=== PATIENT | male | born 1940 | race Caucasian/White ===

== ENCOUNTER 2021-11-02 03:10 | Emergency (ER) | payer OTHER ==
[~2021-11-02] VITALS: Ht 165.1 cm; Wt 81.6 kg
--- NOTE | 2021-11-02 03:20 | NUR ---
BRANDI FROM HOME A/OX1, c/o MECH TRIP AND FALL. PT C/O BACK PAIN -HT. AWAITIND TO BE SEEN BY
--- NOTE | 2021-11-02 03:46 | NUR ---
ENTRY LEVEL PROJECT COORDINATOR AT PT'S BEDSIDE
[2021-11-02 03:58] LABS: BASOPHILS % (AUTO) 0.8 % (0.0-2.0); EOSINOPHILS % (AUTO) 1.3 % (0.0-6.0); HEMATOCRIT 35 % (39-51); HEMOGLOBIN 12.2 g/dL (13.5-17.5); LYMPHOCYTES # (AUTO) 0.6 K/uL (0.8-4.8); LYMPHOCYTES % (AUTO) 9.6 % (20.0-44.0); MEAN CORPUSCULAR HGB CONC 35 g/dl (31.0-36.0); MEAN CORPUSCULAR VOLUME 98 fL (80-96); MONOCYTES # (AUTO) 0.8 K/uL (0.1-1.30); MONOCYTES % (AUTO) 12.4 % (2.0-12.0); NEUTROPHILS # (AUTO) 4.6 K/uL (1.8-8.9); NEUTROPHILS % (AUTO) 75.9 % (43.0-81.0); PLATELET COUNT (AUTO) 155 K/uL (150-450); WHITE BLOOD COUNT (AUTO) 6.1 K/uL (4.3-11.0)
[2021-11-02 04:05] LABS: CALCIUM, SERUM 8.7 mg/dL (8.5-10.1); CARBON DIOXIDE 26 mmol/L (21-32); CHLORIDE 103 mmol/L (98-107); CREATININE 1.8 mg/dL (0.6-1.3); GLUCOSE 289 mg/dL (74-106); POTASSIUM 4.6 mmol/L (3.5-5.1); SODIUM SERUM 136 mmol/L (136-145); UREA NITROGEN, BLOOD 41 mg/dL (7-18)
[2021-11-02 04:06] LABS: SERUM AMMONIA 34 umol/L (11-32)
[2021-11-02 04:10] LABS: ALANINE AMINOTRANSFERASE 32 U/L (12-78); ALBUMIN 3.1 g/dL (3.4-5.0); ALKALINE PHOSPHATASE 103 U/L (46-116); ASPARTATE AMINOTRANSFERASE 18 U/L (15-37); BILIRUBIN,DIRECT 0.1 mg/dL (0.0-0.2); BILIRUBIN,TOTAL 0.5 mg/dL (0.2-1.0); TOTAL PROTEIN, SERUM 6.5 g/dL (6.4-8.2)
--- NOTE | 2021-11-02 04:14 | NUR ---
URINE COLLECTED AND SENT
--- NOTE | 2021-11-02 04:17 | NUR ---
PT TAKEN TO CT VIA [facility]
[2021-11-02 04:42] LABS: BILIRUBIN,URINE NEGATIVE (NEGATIVE); COLOR,URINE YELLOW (YELLOW); LEUKOCYTE ESTERASE ,URINE NEGATIVE (NEGATIVE); NITRITE, URINE NEGATIVE (NEGATIVE); PROTEIN,URINE 100 mg/dl (NEGATIVE); UGLUCOSE >=1000 mg/dL (NEGATIVE); UROBILINOGEN,URINE 0.2 EU/dL (0.2)
--- NOTE | 2021-11-02 05:00 | NUR ---
ACCUCHECK 239 DR WILCOX MADE AWARE.
--- NOTE | 2021-11-02 05:21 | NUR ---
CURRENTLY SPEAKING TO SPOUSE
--- NOTE | 2021-11-02 05:26 | NUR ---
CONTACTED [facility] FOR MD CONSULT. AWAITING A CALL BACK.
--- NOTE | 2021-11-02 05:28 | NUR ---
DR DUMONT FROM [place] ON THE PHONE WITH DR WILCOX
[2021-11-02 05:38] LABS: ACETAMINOPHEN 3 ug/ml (10-30); ALCOHOL, BLOOD < 3 mg/dL (0-0)
--- NOTE | 2021-11-02 05:50 | NUR ---
COVID SWAB COLLECTED
[2021-11-02 06:18] LABS: THYROID STIMULATING HORMONE 1.004 uIU/mL (0.358-3.74)
--- NOTE | 2021-11-02 06:54 | NUR ---
DR HARTLEY ON THE PHONE WITH PAYAN
--- NOTE | 2021-11-02 07:10 | NUR ---
COVID POSITIVE; DR. ODILIA FLORES AWARE.
--- NOTE | 2021-11-02 07:25 | NUR ---
REPORT GIVEN TO LITO DANG FOR [facility]
--- NOTE | 2021-11-02 08:12 | NUR ---
PT ASSISTED W/ REPOSITIONING IN BED; AWAKE AND VERBALLY RESPONSIVE, NOT IN ACUTE DISTRESS.
--- NOTE | 2021-11-02 08:13 | NUR ---
[facility] PRIMARY NUMBER [phone]
--- NOTE | 2021-11-02 09:13 | NUR ---
PT ACCEPTED TO [facility] UNDER DR. ADONIS Pope CALL [phone] FOR REPORT ALS ETA 1000 WITH PRN
--- NOTE | 2021-11-02 09:43 | NUR ---
REPORT GIVEN TO CHRIST DANG FOR KO[facility]
[2021-11-02 10:00] VITALS: BP 150/85
--- NOTE | 2021-11-02 11:00 | NUR ---
PICKED UP BY TRANSPORT IN STABLE CONDITION
== END 2021-11-02 11:01 | disposition short-term general hospital (02) ==
LOC: ER 03:12
DX: R41.82 Altered mental status, unspecified (principal); U07.1 COVID-19; E11.9 Type 2 diabetes mellitus without complications; Z86.73 Personal history of transient ischemic attack (TIA), and cerebral infarction without residual deficits; Z87.440 Personal history of urinary (tract) infections; Z91.81 History of falling
CPT/HCPCS: 99291; 93005; 71045; 74150; 72125; 70450; 82140; 85025; 80048; 80076; 83735; 81003; 36415; 84443; 84484; 85730; 82962; 87426; 80143; 80320; C9803; G0480

== ENCOUNTER 2022-08-06 01:01 | Emergency (ER) | payer OTHER ==
[~2022-08-06] VITALS: Ht 175.3 cm; Wt 85.5 kg
--- NOTE | 2022-08-06 01:29 | NUR ---
[id number] FR HOME, FOUND ON FLOOR PRONE POSTN BY SON, UNKN IF HAD ALCOHOL DRINKS, - TRAUMA, -FACIAL DROOP. RA-80'S, W/ O2 @3LPM 94%. AOX4. BS 165 CRYSTAL MACHINING COORDINATOR
--- NOTE | 2022-08-06 01:37 | NUR ---
DR. GALVAN AT BEDSIDE
--- NOTE | 2022-08-06 01:55 | NUR ---
Lorenzo durbin in [facility] - 08/06/22 at 0254 by STEPHEN 20G R CONSTANTINO STARTED. BLOOD COLLECTED SENT TO LAB
--- NOTE | 2022-08-06 01:55 | NUR ---
20G L AC STARTED. BLOOD COLLECTED SENT TO LAB
[2022-08-06] MEDS ORDERED: IV NS 0.9% 1,000 ML BAG IV ONE (02:00)
--- NOTE | 2022-08-06 02:10 | NUR ---
PT RESISTING GIVING URINE. OFFERED PT URINAL. PT STATES "Leave me alone. I'll get you guys a sample if you leave me alone"
--- NOTE | 2022-08-06 02:23 | NUR ---
PT TAKEN TO CT
--- NOTE | 2022-08-06 02:36 | NUR ---
BACK FROM CT
--- NOTE | 2022-08-06 02:43 | NUR ---
COVID SWAB DONE
[2022-08-06] MEDS ORDERED: CEFTRIAXONE 1GM BAG (ER ONLY) 50 ML IV ONE (02:58)
[2022-08-06] MEDS ORDERED: CEFTRIAXONE 1GM BAG (ER ONLY) 1 GM/50 ML PIGGYBACK IV ONE (03:00)
[2022-08-06] MEDS ORDERED: AZITHROMYCIN 500 MG in IV D5W 250 ML IV ONE (03:00)
[2022-08-06 03:01] LABS: BASOPHILS % (AUTO) 0.4 % (0.0-2.0); EOSINOPHILS % (AUTO) 0.8 % (0.0-6.0); HEMATOCRIT 40 % (39-51); HEMOGLOBIN 12.7 g/dL (13.5-17.5); LYMPHOCYTES # (AUTO) 0.6 K/uL (0.8-4.8); LYMPHOCYTES % (AUTO) 6.2 % (20.0-44.0); MEAN CORPUSCULAR HGB CONC 32 g/dl (31.0-36.0); MEAN CORPUSCULAR VOLUME 96 fL (80-96); MONOCYTES # (AUTO) 0.6 K/uL (0.1-1.30); MONOCYTES % (AUTO) 5.6 % (2.0-12.0); PLATELET COUNT (AUTO) 239 K/uL (150-450); RED BLOOD CELL COUNT(AUTO) 4.11 MIL/uL (4.5-6.0); WHITE BLOOD COUNT (AUTO) 10.3 K/uL (4.3-11.0)
[2022-08-06 03:09] LABS: CALCIUM, SERUM 8.7 mg/dL (8.5-10.1); CARBON DIOXIDE 29 mmol/L (21-32); CHLORIDE 105 mmol/L (98-107); CREATININE 2.2 mg/dL (0.6-1.3); GLUCOSE 132 mg/dL (74-106); POTASSIUM 4.8 mmol/L (3.5-5.1); SODIUM SERUM 139 mmol/L (136-145); UREA NITROGEN, BLOOD 45 mg/dL (7-18)
[2022-08-06 03:29] LABS: ALANINE AMINOTRANSFERASE 38 U/L (12-78); ALBUMIN 2.5 g/dL (3.4-5.0); ALKALINE PHOSPHATASE 108 U/L (46-116); ASPARTATE AMINOTRANSFERASE 32 U/L (15-37); BILIRUBIN,DIRECT 0.2 mg/dL (0.0-0.2); BILIRUBIN,TOTAL 0.4 mg/dL (0.2-1.0); TOTAL PROTEIN, SERUM 6.5 g/dL (6.4-8.2)
[2022-08-06 03:37] LABS: ALCOHOL, BLOOD < 3 mg/dL (0-0)
[2022-08-06] MEDS ORDERED: AZITHROMYCIN 500 MG VIAL ONE (03:39)
--- NOTE | 2022-08-06 04:02 | NUR ---
DR CHESTER ON THE PHONE WITH STEPHENSON
[2022-08-06 04:40] VITALS: BP 127/97
--- NOTE | 2022-08-06 05:29 | NUR ---
PER OLIVA AT [place] [facility], PT GOT ACCEPTED AT [facility], GOING TO RM [id number] # FOR REPORT: [phone]: DR URBAN ALS: 0615, AMBULANCE: [facility]N
--- NOTE | 2022-08-06 05:44 | NUR ---
REPORT GIVEN TO ARON @[facility]
--- NOTE | 2022-08-06 06:50 | NUR ---
[facility] AMBULANCE AT BEDSIDE TO TRANSPORT PT TO [facility]. PT IN STABLE CONDITION
== END 2022-08-06 06:53 | disposition short-term general hospital (02) ==
LOC: ER 01:06
DX: S51.811A Laceration without foreign body of right forearm, initial encounter (principal); R41.82 Altered mental status, unspecified; J44.9 Chronic obstructive pulmonary disease, unspecified; E11.9 Type 2 diabetes mellitus without complications; N18.9 Chronic kidney disease, unspecified; J18.9 Pneumonia, unspecified organism; Z20.822 Contact with and (suspected) exposure to COVID-19; Z60.2 Problems related to living alone; W19.XXXA Unspecified fall, initial encounter; Y93.89 Activity, other specified; Y92.89 Other specified places as the place of occurrence of the external cause; Y99.8 Other external cause status
CPT/HCPCS: 99291; 96365; 96361; 96367; 93005; 71045; 70450; 85025; 80048; 87040 ×2; 83605; 80076; 36415; 84484; 85730; 82962; 87426; 80143; 80320; J0456; J0696; C9803; G0480; J7030; J7060